=== PATIENT | female | born 1945 | race Caucasian/White ===

== ENCOUNTER → 2016-11-25 | Outpatient (CLI) | payer OTHER, MEDICARE ==
--- NOTE | 2016-11-25 08:33 | MA ---
Screening Digital Mammogram With Tomosynthesis Clinical Indications: Routine screening. Technique: Standard digital cephalocaudal and tomosynthesis mediolateral oblique projections are obt ained. The digital images are processed by the [employer] computer aided detection system. Comparison: October 2015, August 2014, August 2013 and August 2012 Breast density: C; The breast tissue is heterogeneously dense, which could obscure detection of small masses. There is diffuse prominent ductal pattern. Findings: CAD was reviewed. No suspicious findings are identified. Impression: Negative mammogram. BI-RADS 1. Recommendation: Routine screening is recommended in one year, as long as physical examination is nikita ign in this patient with moderately dense breast parenchyma. Considering the patient's dense breast p arenchyma, she might consider using whole breast screening ultrasound as a complement to screening ma mmography. [facility] will send a result letter to the patient. Negative mammography should not preclude additional workup of a clinically suspicious finding. The patient's information is entered into a reminder system with a target due date for her next mammo gram.
== END ==
LOC: FIMAGING 07:59
DX: Z12.31 Encounter for screening mammogram for malignant neoplasm of breast (principal)
CPT/HCPCS: G0202

== ENCOUNTER → 2017-12-20 | Outpatient (CLI) | payer OTHER, MEDICARE | LOC: FIMAGING 08:15 | PROVIDERS: ATTEND Internal Medicine | DX: Z12.31 Encounter for screening mammogram for malignant neoplasm of breast (principal) ==

== ENCOUNTER → 2018-04-20 | Outpatient (CLI) | payer OTHER, MEDICARE | LOC: BMCIMAGING 13:57 | PROVIDERS: ATTEND Internal Medicine Rheumatology | DX: M25.512 Pain in left shoulder (principal); M19.012 Primary osteoarthritis, left shoulder | CPT/HCPCS: 86235-90 ==

== ENCOUNTER → 2018-12-25 | Outpatient (CLI) | payer OTHER, MEDICARE | LOC: FIMAGING 08:40 | PROVIDERS: ATTEND Internal Medicine | DX: Z12.31 Encounter for screening mammogram for malignant neoplasm of breast (principal) ==